=== PATIENT | male | born 1960 | race Caucasian/White ===

== ENCOUNTER 2016-05-27 09:11 | Emergency (ER) | payer OTHER ==
[~2016-05-27] VITALS: Ht 172.7 cm; Wt 92.5 kg
[2016-05-27 09:23] VITALS: BP 172/102
--- NOTE | 2016-05-27 09:30 | NUR ---
55 M BIB FAMILY C/O RUQ ABD PAIN, SCROTAL SWELLING X1 DAY; 10/10 PAIN Hx CIRRHOSIS, HEP C. SKIN IS PINK/WARM/DRY; AAOX4 WITH EVEN AND STEADY GAIT; LUNGS CLEAR BL; HR EVEN AND REGULAR; PT DENIES ANY FEVER, CP, SOB, OR COUGH AT THIS TIME; PATIENT STATES PAIN OF 10/10 AT THIS TIME; PATIENT POSITIONED FOR COMFORT; HOB ELEVATED; BEDRAILS UP X2; BED DOWN. ER MD MADE AWARE OF PT STATUS.
--- NOTE | 2016-05-27 09:31 | NUR ---
DR BERG EVALUATING PT AT BEDSIDE
[2016-05-27] MEDS ORDERED: KETOROLAC 60 MG/2 ML VIAL IM ONE (09:40)
--- NOTE | 2016-05-27 10:06 | NUR ---
PT TAKEN TO CT VIA W/C ACCOMPANIED BY VENDOR RELATIONSHIP MANAGER.
[2016-05-27] MEDS ORDERED: ALUMINUM HYD/MAG/SIMETHICONE 30 ML, BELLADONNA/PHENOBARBITAL 10 ML, LIDOCAINE VISCOUS 2... PO ONE (11:00)
[2016-05-27 11:50] VITALS: BP 138/89
--- NOTE | 2016-05-27 11:54 | NUR ---
Patient discharged with v/s stable. Written and verbal after care instructions given and explained. Patient alert, oriented and verbalized understanding of instructions. Ambulatory with steady gait. All questions addressed prior to discharge. ID band removed. Patient advised to follow up with PMD. Rx of NATAN & ELY given. Patient educated on indication of medication including possible reaction and side effects. Opportunity to ask questions provided and answered.
== END 2016-05-27 11:54 | disposition home or self-care (01) ==
LOC: MED 09:25
DX: K74.60 Unspecified cirrhosis of liver (principal); K40.90 Unilateral inguinal hernia, without obstruction or gangrene, not specified as recurrent; D69.59 Other secondary thrombocytopenia; B19.20 Unspecified viral hepatitis C without hepatic coma; Z95.1 Presence of aortocoronary bypass graft
CPT/HCPCS: 36415; 74176; 80053; 81001; 83690; 85025; 96372; 99285; J1885

== ENCOUNTER 2017-11-07 07:42 | Day surgery (SDC) | payer OTHER ==
[~2017-11-07] VITALS: Ht 175.3 cm; Wt 97.1 kg
[2017-11-07] MEDS ORDERED: CEFAZOLIN SODIUM 2 GM/D5W PM 50 ML IV SCH (08:35)
[2017-11-07] MEDS ORDERED: CEFAZOLIN SODIUM 1 GM/D5W PM 50 ML IV SCH (09:10)
[2017-11-07] MEDS ORDERED: PROPOFOL 200 MG/20 ML VIAL IV ONE (13:04)
[2017-11-07] MEDS ORDERED: BUPIVACAINE-MPF 0.25% 30 ML VIAL INJ ONE (13:13)
[2017-11-07] MEDS ORDERED: LIDOCAINE/EPI 1% 1:100000 20 ML VIAL INJ ONE (13:13)
[2017-11-07] MEDS ORDERED: MIDAZOLAM 2 MG/2 ML VIAL ONE (13:14)
[2017-11-07] MEDS ORDERED: fentaNYL 0.05 MG/ML VIAL ONE (13:14)
[2017-11-07] MEDS ORDERED: HYDROmorphone 1 MG/ML AMP IVP PRN ×2 (13:25→14:10)
[2017-11-07] MEDS ORDERED: ONDANSETRON 4 MG/2 ML VIAL IVP PRN (13:25)
[2017-11-07] MEDS ORDERED: HYDROcodone/APAP 5/325 MG 1 TAB TAB PO PRN (14:10)
[2017-11-07] MEDS ORDERED: MORPHINE SULFATE 4 MG/ML SYR IV PRN (14:10)
[2017-11-07] MEDS ORDERED: MORPHINE SULFATE 2 MG/ML SYR IVP PRN (14:10)
[2017-11-07] MEDS ORDERED: ONDANSETRON 4 MG/2 ML VIAL IV PRN (14:10)
== END 2017-11-07 14:38 | disposition home or self-care (01) ==
LOC: MMU 07:42 → MDS 07:42
PROVIDERS: ATTEND Surgery
DX: L72.3 Sebaceous cyst (principal); M19.90 Unspecified osteoarthritis, unspecified site; J45.909 Unspecified asthma, uncomplicated; I12.9 Hypertensive chronic kidney disease with stage 1 through stage 4 chronic kidney disease, or unspecified chronic kidney disease; N18.9 Chronic kidney disease, unspecified; E11.9 Type 2 diabetes mellitus without complications; F03.90 Unspecified dementia, unspecified severity, without behavioral disturbance, psychotic disturbance, mood disturbance, and anxiety; I25.10 Atherosclerotic heart disease of native coronary artery without angina pectoris; B19.20 Unspecified viral hepatitis C without hepatic coma; K74.60 Unspecified cirrhosis of liver; E66.9 Obesity, unspecified; Z68.31 Body mass index [BMI] 31.0-31.9, adult; Z95.1 Presence of aortocoronary bypass graft; Z98.890 Other specified postprocedural states
CPT/HCPCS: 11443; 71045; 88304; 93005; J0690; J2001; J2250; J2704; J3010; J3490; J7120